=== PATIENT | male | born 1990 ===

== ENCOUNTER 2019-05-31 16:14 | Emergency (ER) | payer SELFPAY ==
[2019-05-31] MEDS ORDERED: Lidocaine 1% PF 5 ML VIAL ONE (17:34)
[2019-05-31] MEDS ORDERED: Azithromycin 250 MG TAB ONE (17:34)
[2019-05-31] MEDS ORDERED: cefTRIAXone\\ROCEPHIN 250 MG VIAL ONE (17:34)
[2019-06-01 21:10] LABS: Chlam.trachomatis by PCR,Urine Not Detected (NotDetected)
== END 2019-05-31 17:50 | disposition home or self-care (01) ==
LOC: ERS 16:14
DX: Z20.2 Contact with and (suspected) exposure to infections with a predominantly sexual mode of transmission (principal)
CPT/HCPCS: 87491; 87591; 96372; 99283; J0696; J2001